=== PATIENT | female | born 1965 | race Caucasian/White ===

== ENCOUNTER 2020-10-05 11:01 | Emergency (ER) | payer OTHER ==
[~2020-10-05] VITALS: Ht 154.9 cm; Wt 63.5 kg
[~2020-10-05 11:01] MED LIST: ADVAIR 2501 DISK W/1 IH; DOLOGESIC CAPLE1 TAB PO; MEDROL4 MG PO; PANADOL EXTRA500 MG PO; PREDNISONE20 MG; PREDNISONE20 MG PO; PROVAIR; PROVENTIL17 G1 IH; PROVENTIL3 ML/2.5 M IH; PROZAC10 MG PO; SINGULAIR 5MG5 MG PO; SYNTHROID50 MCG PO; SYNTHROID75 MCG; TUSICOF LIQUID120 ML PO; TUSSAFED EX LI118 ML PO; TUSSI PRES-B L120 M1 PO; ULTRAM50 MG PO; ZITHROMAX TRI-500 MG PO; ZITHROMAX500 MG PO
== END 2020-10-05 20:16 | disposition home or self-care (01) ==
LOC: ER 11:01
DX: R14.0 Abdominal distension (gaseous) (principal); R11.11 Vomiting without nausea; Z03.818 Encounter for observation for suspected exposure to other biological agents ruled out

== ENCOUNTER 2020-12-01 10:31 | Emergency (ER) | payer OTHER ==
[~2020-12-01] VITALS: Ht 154.9 cm; Wt 63.5 kg
[2020-12-01] MEDS ORDERED: ZITHROMAX TRI-500 MG PO (13:55)
[2020-12-01] MEDS ORDERED: TUSSI PRES-B L480 ML PO (13:55)
== END 2020-12-01 13:59 | disposition home or self-care (01) ==
LOC: ER 10:31
DX: B34.9 Viral infection, unspecified (principal); Z03.818 Encounter for observation for suspected exposure to other biological agents ruled out

== ENCOUNTER 2021-01-02 14:33 | Emergency (ER) | payer OTHER ==
[~2021-01-02] VITALS: Ht 154.9 cm; Wt 63.5 kg
[~2021-01-02 14:33] MED LIST changes: +TUSSI PRES-B L480 ML PO
== END 2021-01-02 22:03 | disposition home or self-care (01) ==
LOC: ER 14:33
DX: R10.9 Unspecified abdominal pain (principal); K76.89 Other specified diseases of liver
CPT/HCPCS: 74177; Q9965

== ENCOUNTER 2021-01-26 09:25 | Emergency (ER) | payer OTHER ==
[~2021-01-26] VITALS: Ht 154.9 cm; Wt 63.5 kg
[2021-01-26] MEDS ORDERED: SIMVASTATIN20 MG PO (10:02)
== END 2021-01-26 13:29 | disposition home or self-care (01) ==
LOC: ER 09:25
DX: R11.11 Vomiting without nausea (principal); E86.0 Dehydration; K58.9 Irritable bowel syndrome, unspecified; Z20.822 Contact with and (suspected) exposure to COVID-19

== ENCOUNTER 2021-02-25 03:43 | Emergency (ER) | payer OTHER ==
[~2021-02-25] VITALS: Ht 154.9 cm; Wt 63.5 kg
[~2021-02-25 03:43] MED LIST changes: +SIMVASTATIN20 MG PO
== END 2021-02-25 05:21 | disposition home or self-care (01) ==
LOC: ER 03:43
DX: K29.70 Gastritis, unspecified, without bleeding (principal)

== ENCOUNTER 2021-05-29 15:30 | Emergency (ER) | payer OTHER ==
[~2021-05-29] VITALS: Ht 160 cm; Wt 54.4 kg
[2021-05-29] MEDS ORDERED: ZITHROMAX500 MG PO (18:14)
== END 2021-05-29 19:19 | disposition home or self-care (01) ==
LOC: ER 15:30
DX: B34.9 Viral infection, unspecified (principal); Z20.822 Contact with and (suspected) exposure to COVID-19

== ENCOUNTER 2021-06-04 12:03 | Emergency (ER) | payer OTHER ==
[~2021-06-04] VITALS: Ht 154.9 cm; Wt 63.5 kg
== END 2021-06-04 17:51 | disposition home or self-care (01) ==
LOC: ER 12:03
DX: B34.9 Viral infection, unspecified (principal); E03.9 Hypothyroidism, unspecified; E78.5 Hyperlipidemia, unspecified; Z88.8 Allergy status to other drugs, medicaments and biological substances

== ENCOUNTER 2021-09-05 11:12 | Emergency (ER) | payer OTHER ==
[~2021-09-05] VITALS: Ht 154.9 cm; Wt 63.5 kg
== END 2021-09-05 14:15 | disposition home or self-care (01) ==
LOC: ER 11:12
DX: K29.70 Gastritis, unspecified, without bleeding (principal); A49.3 Mycoplasma infection, unspecified site

== ENCOUNTER 2021-10-08 03:33 | Emergency (ER) | payer OTHER ==
[~2021-10-08] VITALS: Ht 154.9 cm; Wt 63.5 kg
== END 2021-10-08 13:38 | disposition home or self-care (01) ==
LOC: ER 03:33
DX: R05.9 Cough, unspecified (principal); Z20.828 Contact with and (suspected) exposure to other viral communicable diseases; R50.9 Fever, unspecified; E86.0 Dehydration

== ENCOUNTER 2021-11-25 14:16 | Emergency (ER) | payer OTHER ==
[~2021-11-25] VITALS: Ht 154.9 cm; Wt 63.5 kg
== END 2021-11-25 16:32 | disposition left against medical advice (07) ==
LOC: ER 14:16
DX: Z53.21 Procedure and treatment not carried out due to patient leaving prior to being seen by health care provider (principal)

== ENCOUNTER 2021-11-26 10:12 | Emergency (ER) | payer OTHER ==
[~2021-11-26] VITALS: Ht 154.9 cm; Wt 63.5 kg
== END 2021-11-26 23:54 | disposition home or self-care (01) ==
LOC: ER 10:12
DX: K29.70 Gastritis, unspecified, without bleeding (principal); K21.9 Gastro-esophageal reflux disease without esophagitis; J45.909 Unspecified asthma, uncomplicated; E03.9 Hypothyroidism, unspecified; Z88.6 Allergy status to analgesic agent

== ENCOUNTER 2021-12-22 09:42 | Emergency (ER) | payer OTHER ==
[~2021-12-22] VITALS: Ht 154.9 cm; Wt 63.5 kg
== END 2021-12-22 15:48 | disposition home or self-care (01) ==
LOC: ER 09:42
DX: K29.00 Acute gastritis without bleeding (principal)

== ENCOUNTER 2022-02-27 10:17 | Emergency (ER) | payer OTHER ==
[~2022-02-27] VITALS: Ht 154.9 cm; Wt 68.0 kg
== END 2022-02-27 14:06 | disposition home or self-care (01) ==
LOC: ER 10:17
DX: K29.00 Acute gastritis without bleeding (principal); Z88.6 Allergy status to analgesic agent; K21.9 Gastro-esophageal reflux disease without esophagitis; R10.9 Unspecified abdominal pain

== ENCOUNTER 2022-03-29 09:51 | Emergency (ER) | payer OTHER ==
[~2022-03-29] VITALS: Ht 154.9 cm; Wt 67.6 kg
[2022-03-29] MEDS ORDERED: IPRAT-ALBUT 0.5-3 ML IH (13:37)
[2022-03-29] MEDS ORDERED: MEDROLPACK PO (13:37)
[2022-03-29] MEDS ORDERED: BUDESONIDE0.5 MG/2 M IH (13:37)
[2022-03-29] MEDS ORDERED: MUCINEX DM ER1 EAC1 PO (13:37)
[2022-03-29] MEDS ORDERED: BENZONATATE200 M1 PO (13:37)
[2022-03-29] MEDS ORDERED: ZITHROMAX500 MG PO (13:40)
== END 2022-03-29 13:52 ==
LOC: ER 09:51
DX: J06.9 Acute upper respiratory infection, unspecified (principal); E03.9 Hypothyroidism, unspecified; Z88.6 Allergy status to analgesic agent; Z20.822 Contact with and (suspected) exposure to COVID-19

== ENCOUNTER → 2022-04-03 | Emergency (ER) | payer OTHER ==
[~2022-04-03] VITALS: Ht 154.9 cm; Wt 66.2 kg
[~2022-04-03] MED LIST changes: +BENZONATATE200 M1 PO; +BUDESONIDE0.5 MG/2 M IH; +IPRAT-ALBUT 0.5-3 ML IH; +MEDROLPACK PO; +MUCINEX DM ER1 EAC1 PO
== END | disposition left against medical advice (07) ==
LOC: ER 14:14
DX: Z53.21 Procedure and treatment not carried out due to patient leaving prior to being seen by health care provider (principal)

== ENCOUNTER 2022-04-04 09:12 | Emergency (ER) | payer OTHER ==
[~2022-04-04] VITALS: Ht 154.9 cm; Wt 66.2 kg
== END 2022-04-04 16:51 | disposition home or self-care (01) ==
LOC: ER 09:12
DX: K52.9 Noninfective gastroenteritis and colitis, unspecified (principal); Z88.6 Allergy status to analgesic agent

== ENCOUNTER 2022-04-16 09:35 | Emergency (ER) | payer OTHER ==
[~2022-04-16] VITALS: Ht 154.9 cm; Wt 66.2 kg
== END 2022-04-16 16:09 | disposition home or self-care (01) ==
LOC: ER 09:35
DX: R11.2 Nausea with vomiting, unspecified (principal); Z88.6 Allergy status to analgesic agent; Z87.11 Personal history of peptic ulcer disease

== ENCOUNTER 2022-05-13 10:09 | Emergency (ER) | payer OTHER ==
[~2022-05-13] VITALS: Ht 154.9 cm; Wt 63.5 kg
== END 2022-05-13 16:20 | disposition home or self-care (01) ==
LOC: ER 10:09
DX: K21.9 Gastro-esophageal reflux disease without esophagitis (principal); K29.70 Gastritis, unspecified, without bleeding; Z88.6 Allergy status to analgesic agent; E03.9 Hypothyroidism, unspecified

== ENCOUNTER → 2022-06-16 | Emergency (ER) | payer OTHER ==
[~2022-06-16] VITALS: Ht 154.9 cm; Wt 65.8 kg
== END | disposition home or self-care (01) ==
LOC: ER 11:02
DX: K29.00 Acute gastritis without bleeding (principal); R11.10 Vomiting, unspecified; R10.9 Unspecified abdominal pain; R53.81 Other malaise; E05.80 Other thyrotoxicosis without thyrotoxic crisis or storm; Z88.6 Allergy status to analgesic agent

== ENCOUNTER 2022-08-02 11:27 | Emergency (ER) | payer OTHER ==
[~2022-08-02] VITALS: Ht 154.9 cm; Wt 62.1 kg
== END 2022-08-02 20:41 | disposition home or self-care (01) ==
LOC: ER 11:27
DX: K52.9 Noninfective gastroenteritis and colitis, unspecified (principal); K76.0 Fatty (change of) liver, not elsewhere classified; E03.9 Hypothyroidism, unspecified; E78.00 Pure hypercholesterolemia, unspecified; Z88.6 Allergy status to analgesic agent

== ENCOUNTER 2023-01-15 09:45 | Emergency (ER) | payer OTHER ==
[~2023-01-15] VITALS: Ht 154.9 cm; Wt 63.5 kg
== END 2023-01-15 13:30 | disposition home or self-care (01) ==
LOC: ER 09:46
DX: U07.1 COVID-19 (principal); J06.9 Acute upper respiratory infection, unspecified; R05.9 Cough, unspecified; Z88.6 Allergy status to analgesic agent

== ENCOUNTER 2023-01-23 13:53 | Emergency (ER) | payer OTHER ==
[~2023-01-23] VITALS: Ht 154.9 cm; Wt 63.5 kg
[2023-01-23 15:44] LABS: HEMATOCRIT 34.8 % (36.0-45.00); MEAN CELL VOLUME 88.6 fL (80.00-100.00); MEAN CORPUSCULAR HEMOGLOBIN 30.5 pg (27.00-32.0); MEAN CORPUSCULAR HGB CONC 34.4 g/dl (32.0-36.0); PLATELET COUNT 382 K/uL (150-450); RED BLOOD COUNT 3.93 M/uL (4.00-6.00); RED CELL DISTRIBUTION WIDTH 13.3 % (11.5-14.5)
[2023-01-23 16:29] LABS: CALCIUM 8.7 mg/dL (8.5-10.1); CREATININE SERUM 0.86 mg/dL (0.55-1.02); GFR 67.77; POTASSIUM 3.82 mEq/L (3.5-5.1)
[2023-01-23] MEDS ORDERED: MEDROLPACK PO (17:18)
== END 2023-01-23 18:17 | disposition home or self-care (01) ==
LOC: ER 13:53
PROVIDERS: Nurse Practitioner Family
DX: J06.9 Acute upper respiratory infection, unspecified (principal); Z88.6 Allergy status to analgesic agent; Z20.822 Contact with and (suspected) exposure to COVID-19

== ENCOUNTER 2023-01-25 09:25 | Emergency (ER) | payer OTHER ==
[~2023-01-25] VITALS: Ht 154.9 cm; Wt 61.2 kg
[2023-01-25 13:26] LABS: HEMATOCRIT 36.7 % (36.0-45.00); HEMOGLOBIN 12.6 g/dL (12.0-15.00); MEAN CELL VOLUME 88.4 fL (80.00-100.00); MEAN CORPUSCULAR HEMOGLOBIN 30.3 pg (27.00-32.0); MEAN CORPUSCULAR HGB CONC 34.3 g/dl (32.0-36.0); PLATELET COUNT 412 K/uL (150-450); RED BLOOD COUNT 4.15 M/uL (4.00-6.00); RED CELL DISTRIBUTION WIDTH 13.3 % (11.5-14.5)
[2023-01-25 13:38] LABS: CALCIUM 9.5 mg/dL (8.5-10.1); CREATININE SERUM 0.78 mg/dL (0.55-1.02); GFR 75.85; POTASSIUM 4.03 mEq/L (3.5-5.1)
[2023-01-25 14:38] LABS: URINE APPEARANCE Clear; URINE BILIRRUBIN Negative (NEGATIVE); URINE BLOOD Negative; URINE COLOR Yellow; URINE GLUCOSE Negative (NEGATIVE); URINE LEUKOCYTE Negative; URINE NITRATE Negative; URINE PROTEIN Negative (NEGATIVE); URINE UROBILINOGEN 0.2 E.U./dl
[2023-01-25 14:43] LABS: URINE RBC 3.4 uL (0.0-20.8)
[2023-01-25 14:48] LABS: URINE BACTERIA 1.2 uL (0.0-1933); URINE EPITHELIAL CELLS 0.9 uL (0.0-38.8); URINE WBC 0.6 uL (0.0-23.2)
== END 2023-01-25 17:29 | disposition home or self-care (01) ==
LOC: ER 09:26
PROVIDERS: General Practice
DX: K29.00 Acute gastritis without bleeding (principal); R11.10 Vomiting, unspecified; Z88.6 Allergy status to analgesic agent; E03.9 Hypothyroidism, unspecified; J45.909 Unspecified asthma, uncomplicated; Z86.16 Personal history of COVID-19

== ENCOUNTER 2023-03-04 06:17 | Emergency (ER) | payer OTHER ==
[~2023-03-04] VITALS: Ht 154.9 cm; Wt 61.2 kg
[2023-03-04 09:09] LABS: HEMATOCRIT 36.6 % (36.0-45.00); HEMOGLOBIN 12.5 g/dL (12.0-15.00); MEAN CELL VOLUME 90.4 fL (80.00-100.00); MEAN CORPUSCULAR HEMOGLOBIN 30.8 pg (27.00-32.0); MEAN CORPUSCULAR HGB CONC 34.1 g/dl (32.0-36.0); PLATELET COUNT 329 K/uL (150-450); RED BLOOD COUNT 4.05 M/uL (4.00-6.00); RED CELL DISTRIBUTION WIDTH 14.1 % (11.5-14.5)
[2023-03-04 09:24] LABS: CALCIUM 9.1 mg/dL (8.5-10.1); CREATININE SERUM 0.78 mg/dL (0.55-1.02); GFR 75.85; POTASSIUM 3.37 mEq/L (3.5-5.1)
== END 2023-03-04 11:00 | disposition home or self-care (01) ==
LOC: ER 06:18
PROVIDERS: Emergency Medicine
DX: B34.9 Viral infection, unspecified (principal); R53.81 Other malaise; R11.0 Nausea; Z20.822 Contact with and (suspected) exposure to COVID-19; E03.8 Other specified hypothyroidism; Z88.6 Allergy status to analgesic agent

== ENCOUNTER 2023-09-15 11:46 | Emergency (ER) | payer OTHER ==
[~2023-09-15] VITALS: Ht 154.9 cm; Wt 61.2 kg
[2023-09-15 14:17] LABS: HEMATOCRIT 33.3 % (36.0-45.00); MEAN CELL VOLUME 91.5 fL (80.00-100.00); PLATELET COUNT 251 K/uL (150-450); RED BLOOD COUNT 3.64 M/uL (4.00-6.00); RED CELL DISTRIBUTION WIDTH 13.4 % (11.5-14.5)
[2023-09-15 14:18] LABS: HEMOGLOBIN 11.3 g/dL (12.0-15.00)
[2023-09-15 15:44] LABS: CALCIUM 8.6 mg/dL (8.5-10.1); CREATININE SERUM 0.87 mg/dL (0.55-1.02); GFR 66.64; POTASSIUM 4.02 mEq/L (3.5-5.1)
== END 2023-09-15 16:15 | disposition home or self-care (01) ==
LOC: ER 11:46
PROVIDERS: General Practice
DX: R53.1 Weakness (principal); Z88.6 Allergy status to analgesic agent; Z20.822 Contact with and (suspected) exposure to COVID-19

== ENCOUNTER → 2023-09-15 | Emergency (ER) | payer OTHER ==
[~2023-09-15] MED LIST changes: +TUSNEL LIQUID178 ML PO
== END | disposition left against medical advice (07) ==
LOC: ER 11:00
DX: Z53.21 Procedure and treatment not carried out due to patient leaving prior to being seen by health care provider (principal)

== ENCOUNTER 2023-09-20 19:03 | Emergency (ER) | payer OTHER ==
[~2023-09-20] VITALS: Ht 154.9 cm; Wt 61.2 kg
[2023-09-20] MEDS ORDERED: METHYLPREDNISOLONE SOD SUCC 125 MG VIAL IV STA (19:22)
[2023-09-20] MEDS ORDERED: MAGNESIUM SULFATE IN WATER 4 GM/100 ML PIGGYBACK IV STA (19:23)
[2023-09-20] MEDS ORDERED: IPRATROPIUM/ALBUTEROL SULFATE 3 ML AMPUL.NEB IH STA (19:26)
[2023-09-20] MEDS ORDERED: IPRATROPIUM/ALBUTEROL SULFATE 3 ML AMPUL.NEB IH SCH (19:30)
[2023-09-20] MEDS ORDERED: METHYLPREDNISOLONE SOD SUCC 125 MG VIAL ONE (19:33)
[2023-09-20] MEDS ORDERED: MAGNESIUM SULFATE 50% 5,000 MG/10 ML VIAL ONE (19:34)
[2023-09-20] MEDS ORDERED: IPRATROPIUM/ALBUTEROL SULFATE 3 ML AMPUL.NEB IH ONE ×2 (19:48→19:49)
== END 2023-09-20 20:26 | disposition home or self-care (01) ==
LOC: ER 19:04
DX: R53.81 Other malaise (principal); J45.901 Unspecified asthma with (acute) exacerbation; Z88.6 Allergy status to analgesic agent

== ENCOUNTER 2023-10-19 06:43 | Emergency (ER) | payer OTHER ==
[~2023-10-19] VITALS: Ht 162.6 cm; Wt 63.5 kg
[2023-10-19] MEDS ORDERED: ONDANSETRON HCL 2 MG/ML VIAL IV ONE (08:15)
[2023-10-19] MEDS ORDERED: 0.9 % SODIUM CHLORIDE 500 ML IV ONE (08:15)
[2023-10-19] MEDS ORDERED: ACETAMINOPHEN 500 MG GEL..CAP PO ONE ×2 (08:15→08:35)
[2023-10-19] MEDS ORDERED: ONDANSETRON HCL 2 MG/ML VIAL ONE (08:35)
[2023-10-19 09:01] LABS: HEMATOCRIT 35.9 % (36.0-45.00); HEMOGLOBIN 12.1 g/dL (12.0-15.00); MEAN CELL VOLUME 91.4 fL (80.00-100.00); MEAN CORPUSCULAR HEMOGLOBIN 30.9 pg (27.00-32.0); MEAN CORPUSCULAR HGB CONC 33.9 g/dl (32.0-36.0); PLATELET COUNT 331 K/uL (150-450); RED BLOOD COUNT 3.92 M/uL (4.00-6.00); RED CELL DISTRIBUTION WIDTH 13.4 % (11.5-14.5)
[2023-10-19 09:29] LABS: URINE APPEARANCE Clear; URINE BILIRRUBIN Negative (NEGATIVE); URINE BLOOD Negative; URINE COLOR Yellow; URINE GLUCOSE Negative (NEGATIVE); URINE KETONE Negative (NEGATIVE); URINE LEUKOCYTE Trace; URINE NITRATE Negative; URINE PROTEIN Negative (NEGATIVE); URINE UROBILINOGEN 0.2 E.U./dl
[2023-10-19 09:31] LABS: URINE BACTERIA 27.7 uL (0.0-1933); URINE EPITHELIAL CELLS 7.2 uL (0.0-38.8); URINE RBC 16.3 uL (0.0-20.8); URINE WBC 6.9 uL (0.0-23.2)
[2023-10-19 09:51] LABS: URINE CAST 0.15 uL (0.0-1.40)
[2023-10-19 09:52] LABS: CALCIUM 9.1 mg/dL (8.5-10.1); CREATININE SERUM 0.87 mg/dL (0.55-1.02); GFR 66.64; POTASSIUM 4.13 mEq/L (3.5-5.1)
== END 2023-10-19 10:53 | disposition home or self-care (01) ==
LOC: ER 06:44
PROVIDERS: General Practice
DX: B34.9 Viral infection, unspecified (principal); I95.89 Other hypotension; E03.8 Other specified hypothyroidism; Z88.6 Allergy status to analgesic agent
CPT/HCPCS: 36415; 96365; 99282; J2405; J7042

== ENCOUNTER 2023-12-01 11:11 | Emergency (ER) | payer OTHER ==
[~2023-12-01] VITALS: Ht 154.9 cm; Wt 61.2 kg
[~2023-12-01 11:11] MED LIST changes: -SYNTHROID75 MCG; +SYNTHROID75 MCG PO
[2023-12-01] MEDS ORDERED: ACETAMINOPHEN 500 MG GEL..CAP PO STA (12:28)
[2023-12-01 13:22] LABS: HEMOGLOBIN 11.8 g/dL (12.0-15.00); MEAN CORPUSCULAR HGB CONC 33.7 g/dl (32.0-36.0); PLATELET COUNT 283 K/uL (150-450); RED BLOOD COUNT 3.81 M/uL (4.00-6.00); RED CELL DISTRIBUTION WIDTH 13.6 % (11.5-14.5)
== END 2023-12-01 17:53 | disposition home or self-care (01) ==
LOC: ER 11:13
PROVIDERS: General Practice
DX: B34.9 Viral infection, unspecified (principal); R53.81 Other malaise; Z20.822 Contact with and (suspected) exposure to COVID-19; Z88.6 Allergy status to analgesic agent

== ENCOUNTER 2024-01-16 06:34 | Emergency (ER) | payer OTHER ==
[~2024-01-16] VITALS: Ht 154.9 cm; Wt 63.5 kg
[2024-01-16] MEDS ORDERED: CETIRIZINE HCL 5 MG/5 ML ML PO ONE (09:30)
[2024-01-16] MEDS ORDERED: IPRATROPIUM/ALBUTEROL SULFATE 3 ML AMPUL.NEB IH SCH (09:30)
[2024-01-16] MEDS ORDERED: METHYLPREDNISOLONE SOD SUCC 125 MG VIAL IV ONE (09:30)
[2024-01-16] MEDS ORDERED: MUCINEX DM ER1 EAC1 PO (10:47)
[2024-01-16] MEDS ORDERED: BENZONATATE100 MG PO (10:47)
[2024-01-16] MEDS ORDERED: MONTELUKAST SOD10 MG PO (10:47)
== END 2024-01-16 12:31 | disposition home or self-care (01) ==
LOC: ER 06:36
DX: R05.8 Other specified cough (principal); R05.9 Cough, unspecified; J06.9 Acute upper respiratory infection, unspecified; Z20.822 Contact with and (suspected) exposure to COVID-19; E03.8 Other specified hypothyroidism; Z88.0 Allergy status to penicillin

== ENCOUNTER 2024-01-18 12:07 | Emergency (ER) | payer OTHER ==
[~2024-01-18] VITALS: Ht 162.6 cm; Wt 77.1 kg
[~2024-01-18 12:07] MED LIST changes: +BENZONATATE100 MG PO; +MONTELUKAST SOD10 MG PO
[2024-01-18] MEDS ORDERED: CEFTRIAXONE SODIUM 1,000 MG VIAL IM ONE (13:00)
[2024-01-18] MEDS ORDERED: IPRATROPIUM BROMIDE 0.5 MG/2.5 ML AMPUL.NEB IH ONE (13:00)
[2024-01-18] MEDS ORDERED: LORATADINE 10 MG TABLET PO ONE (13:00)
[2024-01-18] MEDS ORDERED: METHYLPREDNISOLONE SOD SUCC 40 MG VIAL IM ONE (13:00)
[2024-01-18] MEDS ORDERED: LEVALBUTEROL HCL 1.25 MG/3 ML SOLUTION IH ONE (13:00)
[2024-01-18] MEDS ORDERED: BENZONATATE 200 MG CAPSULE PO ONE (13:00)
[2024-01-18 13:33] LABS: HEMATOCRIT 35.1 % (36.0-45.00); HEMOGLOBIN 11.6 g/dL (12.0-15.00); MEAN CORPUSCULAR HEMOGLOBIN 30.8 pg (27.00-32.0); MEAN CORPUSCULAR HGB CONC 33.2 g/dl (32.0-36.0); PLATELET COUNT 300 K/uL (150-450); RED BLOOD COUNT 3.78 M/uL (4.00-6.00); RED CELL DISTRIBUTION WIDTH 13.8 % (11.5-14.5)
[2024-01-18] MEDS ORDERED: MEDROLPACK PO (15:25)
[2024-01-18] MEDS ORDERED: BENZONATATE200 M1 PO (15:25)
[2024-01-18] MEDS ORDERED: ZITHROMAX500 MG PO (15:25)
[2024-01-18] MEDS ORDERED: SINGULAIR10 MG PO (15:25)
[2024-01-18] MEDS ORDERED: LEVALBUTER0.63 MG/3 IH (15:25)
[2024-01-18] MEDS ORDERED: PEPCID AC20 MG PO (15:25)
[2024-01-18] MEDS ORDERED: PROAIR RESPICL90 MCG IH (15:25)
== END 2024-01-18 15:34 | disposition home or self-care (01) ==
LOC: ER 12:09
PROVIDERS: General Practice
DX: J45.909 Unspecified asthma, uncomplicated (principal); R05.9 Cough, unspecified; Z20.822 Contact with and (suspected) exposure to COVID-19; E03.8 Other specified hypothyroidism; Z88.0 Allergy status to penicillin

== ENCOUNTER 2024-03-22 10:38 | Emergency (ER) | payer OTHER ==
[~2024-03-22] VITALS: Ht 154.9 cm; Wt 63.5 kg
[~2024-03-22 10:38] MED LIST changes: +LEVALBUTER0.63 MG/3 IH; +PEPCID AC20 MG PO; +PROAIR RESPICL90 MCG IH; +SINGULAIR10 MG PO
[2024-03-22] MEDS ORDERED: SIMVASTATIN10 MG PO (11:17)
[2024-03-22] MEDS ORDERED: PEPCID AC20 MG PO (11:17)
[2024-03-22 13:53] LABS: HEMATOCRIT 35.7 % (36.0-45.00); HEMOGLOBIN 12.1 g/dL (12.0-15.00); MEAN CELL VOLUME 91.2 fL (80.00-100.00); MEAN CORPUSCULAR HEMOGLOBIN 30.9 pg (27.00-32.0); MEAN CORPUSCULAR HGB CONC 33.9 g/dl (32.0-36.0); PLATELET COUNT 298 K/uL (150-450); RED BLOOD COUNT 3.91 M/uL (4.00-6.00); RED CELL DISTRIBUTION WIDTH 13.8 % (11.5-14.5)
== END 2024-03-22 16:19 | disposition home or self-care (01) ==
LOC: ER 10:41
PROVIDERS: General Practice
DX: B34.9 Viral infection, unspecified (principal); R53.81 Other malaise; Z20.822 Contact with and (suspected) exposure to COVID-19; E03.8 Other specified hypothyroidism; Z88.6 Allergy status to analgesic agent

== ENCOUNTER 2024-05-08 11:30 | Emergency (ER) | payer OTHER ==
[~2024-05-08] VITALS: Ht 154.9 cm; Wt 61.2 kg
[~2024-05-08 11:30] MED LIST changes: +SIMVASTATIN10 MG PO
[2024-05-08] MEDS ORDERED: FAMOTIDINE/PF 20 MG in 0.9 % SODIUM CHLORIDE 8 ML IV PUSH STA (12:31)
[2024-05-08] MEDS ORDERED: HYOSCYAMINE SULFATE 0.125 MG TAB.SUBL SL ONE (12:45)
[2024-05-08] MEDS ORDERED: 0.9 % SODIUM CHLORIDE 1,000 ML IV SCH (12:45)
[2024-05-08] MEDS ORDERED: ONDANSETRON HCL 2 MG/ML VIAL IV ONE (12:45)
[2024-05-08] MEDS ORDERED: ONDANSETRON HCL 2 MG/ML VIAL ONE (12:53)
[2024-05-08] MEDS ORDERED: HYOSCYAMINE SULFATE 0.125 MG TAB.SUBL ONE (12:53)
[2024-05-08] MEDS ORDERED: FAMOTIDINE/PF 20 MG/2 ML VIAL ONE (12:54)
[2024-05-08 13:13] LABS: HEMATOCRIT 37.7 % (36.0-45.00); HEMOGLOBIN 12.6 g/dL (12.0-15.00); MEAN CELL VOLUME 91.1 fL (80.00-100.00); MEAN CORPUSCULAR HEMOGLOBIN 30.5 pg (27.00-32.0); MEAN CORPUSCULAR HGB CONC 33.5 g/dl (32.0-36.0); PLATELET COUNT 311 K/uL (150-450); RED BLOOD COUNT 4.15 M/uL (4.00-6.00); RED CELL DISTRIBUTION WIDTH 13.6 % (11.5-14.5)
[2024-05-08 15:19] LABS: ALBUMIN 3.7 gm/dL (3.4-5.0); BILIRUBIN TOTAL 0.39 mg/dL (0.3-1.2); CALCIUM 8.9 mg/dL (8.5-10.1); CREATININE SERUM 0.82 mg/dL (0.55-1.02); GFR 71.35; GLOBULINA 3.6 G/DL (2.4-3.5); POTASSIUM 4.3 mEq/L (3.5-5.1); TOTAL PROTEIN 7.3 gm/dL (6.4-8.2)
[2024-05-08 15:35] VITALS: BP 120/69; O2SAT 100
[2024-05-08] MEDS ORDERED: PEPCID AC20 MG PO (15:43)
[2024-05-08] MEDS ORDERED: ZOFRAN8 MG PO (15:43)
[2024-05-08] MEDS ORDERED: LEVSIN/SL0.125 MG SL (15:43)
== END 2024-05-08 15:51 | disposition home or self-care (01) ==
LOC: ER 11:31
PROVIDERS: General Practice
DX: K52.89 Other specified noninfective gastroenteritis and colitis (principal); I10 Essential (primary) hypertension; Z88.6 Allergy status to analgesic agent

== ENCOUNTER → 2024-07-13 | Emergency (ER) | payer OTHER ==
[~2024-07-13] VITALS: Ht 154.9 cm; Wt 68.0 kg
[~2024-07-13] MED LIST changes: +LEVSIN/SL0.125 MG SL; +ZOFRAN8 MG PO
== END | disposition left against medical advice (07) ==
LOC: ER 16:58
DX: Z53.21 Procedure and treatment not carried out due to patient leaving prior to being seen by health care provider (principal)

== ENCOUNTER 2024-07-14 06:46 | Emergency (ER) | payer OTHER ==
[~2024-07-14] VITALS: Ht 154.9 cm; Wt 63.5 kg
[2024-07-14 08:46] LABS: BASO % 0.6 % (0.1-1.2); EOS % 1.6 % (0.7-7.0); HEMATOCRIT 36.2 % (34.1-44.9); HEMOGLOBIN 12.2 g/dL (11.2-15.7); LYMPH # 1.87 (1.18-3.74); LYMPH % 29.8 % (19.3-53.1); MEAN CORPUSCULAR HEMOGLOBIN 30.4 pg (25.6-32.2); MONO # 0.69 (0.24-0.82); NEUT # 3.56 (1.56-6.13); NEUT % 56.8 % (34.0-71.1); PLATELET COUNT 293 K/uL (163-369); RED BLOOD COUNT 4.01 M/uL (3.93-5.22); RED CELL DISTRIBUTION WIDTH 12.6 % (11.6-14.4)
[2024-07-14 09:31] LABS: COVID-19 AG NEGATIVE (NEGATIVE); INFLUENZA A AG NEGATIVE (NEGATIVE); INFLUENZA B AG NEGATIVE (NEGATIVE)
== END 2024-07-14 10:46 | disposition home or self-care (01) ==
LOC: ER 07:40
DX: B34.9 Viral infection, unspecified (principal); Z88.6 Allergy status to analgesic agent; E03.8 Other specified hypothyroidism; Z20.822 Contact with and (suspected) exposure to COVID-19

== ENCOUNTER → 2024-08-09 | Emergency (ER) | payer OTHER | END | disposition left against medical advice (07) | LOC: ER 10:16 | DX: Z53.21 Procedure and treatment not carried out due to patient leaving prior to being seen by health care provider (principal) ==

== ENCOUNTER 2024-08-12 06:30 | Emergency (ER) | payer OTHER ==
[~2024-08-12] VITALS: Ht 154.9 cm; Wt 65.8 kg
[2024-08-12] MEDS ORDERED: HYDROCODONE/CHLORPHEN P-STIREX 5 ML ML PO STA (08:05)
[2024-08-12] MEDS ORDERED: IPRATROPIUM/ALBUTEROL SULFATE 3 ML AMPUL.NEB IH STA (08:06)
[2024-08-12] MEDS ORDERED: METHYLPREDNISOLONE SOD SUCC 125 MG VIAL IV STA (08:06)
[2024-08-12 09:17] LABS: BASO % 0.4 % (0.1-1.2); EOS # 0.05 (0.04-0.54); EOS % 0.4 % (0.7-7.0); LYMPH # 1.27 (1.18-3.74); LYMPH % 9.4 % (19.3-53.1); MEAN PLATELET VOLUME 9.90 fl (9.4-12.4); MONO # 1.17 (0.24-0.82); MONO % 8.7 % (4.7-12.5); NEUT # 10.85 (1.56-6.13); NEUT % 80.7 % (34.0-71.1); RED CELL DISTRIBUTION WIDTH 12.7 % (11.6-14.4)
[2024-08-12 09:28] LABS: COVID-19 AG NEGATIVE (NEGATIVE)
[2024-08-12] MEDS ORDERED: CEFTRIAXONE SODIUM 1,000 MG VIAL IM STA (09:36)
== END 2024-08-12 11:31 | disposition home or self-care (01) ==
LOC: ER 06:33
DX: J45.909 Unspecified asthma, uncomplicated (principal); Z20.822 Contact with and (suspected) exposure to COVID-19; Z88.6 Allergy status to analgesic agent

== ENCOUNTER 2024-08-16 11:30 | Emergency (ER) | payer OTHER ==
[~2024-08-16] VITALS: Ht 154.9 cm; Wt 65.8 kg
[2024-08-16] MEDS ORDERED: BUDESONIDE 0.5 MG/2 ML AMPUL.NEB IH ONE (13:15)
[2024-08-16] MEDS ORDERED: METHYLPREDNISOLONE SOD SUCC 125 MG VIAL IV ONE (13:15)
[2024-08-16] MEDS ORDERED: IPRATROPIUM/ALBUTEROL SULFATE 3 ML AMPUL.NEB IH SCH (13:15)
[2024-08-16] MEDS ORDERED: MAGNESIUM SULFATE IN WATER 50 ML IV NR (13:15)
[2024-08-16 13:59] LABS: BASO % 0.5 % (0.1-1.2); EOS # 0.16 (0.04-0.54); EOS % 1.6 % (0.7-7.0); LYMPH # 2.22 (1.18-3.74); LYMPH % 21.6 % (19.3-53.1); MEAN PLATELET VOLUME 9.80 fl (9.4-12.4); MONO # 1.12 (0.24-0.82); MONO % 10.9 % (4.7-12.5); NEUT # 6.70 (1.56-6.13); NEUT % 65.2 % (34.0-71.1); RED CELL DISTRIBUTION WIDTH 12.6 % (11.6-14.4)
[2024-08-16 14:22] LABS: ALT/SGPT 32.0 U/L (12-78); AST/SGOT 19.0 U/L (15-37); BILIRUBIN TOTAL 0.36 mg/dL (0.3-1.2); BUN CREA RATIO 13.0 (7.0-25.0); CREATININE SERUM 0.82 mg/dL (0.55-1.02); GFR 71.35; GLOBULINA 3.9 G/DL (2.4-3.5); GLUCOSE FASTING 86.0 mg/dL (65-100); OSMOLALITY SERUM 284.0 MOSM/KG (275-295)
[2024-08-16 14:59] LABS: COVID-19 AG NEGATIVE (NEGATIVE)
[2024-08-16] MEDS ORDERED: ALBUTEROL2.5 MG/3 M IH (16:14)
[2024-08-16] MEDS ORDERED: BUDESONIDE0.5 MG/2 M IH (16:14)
[2024-08-16] MEDS ORDERED: GILTUSS COUGH-118 M1 PO (16:14)
[2024-08-16] MEDS ORDERED: ACETAMINOPHEN500 M1 PO (16:14)
[2024-08-16] MEDS ORDERED: ZITHROMAX TRI-500 MG PO (16:14)
== END 2024-08-16 17:13 | disposition home or self-care (01) ==
LOC: ER 11:30
PROVIDERS: Preventive Medicine Public Health & General Preventive Medicine
DX: J45.901 Unspecified asthma with (acute) exacerbation (principal); J06.9 Acute upper respiratory infection, unspecified; E03.8 Other specified hypothyroidism; R06.02 Shortness of breath; R05.9 Cough, unspecified; Z20.822 Contact with and (suspected) exposure to COVID-19; Z88.6 Allergy status to analgesic agent

== ENCOUNTER → 2024-08-23 | Emergency (ER) | payer OTHER ==
[~2024-08-23] MED LIST changes: +ACETAMINOPHEN500 M1 PO; +ALBUTEROL SULFATE 3 ML/2.5 MG AMPUL.NEB IH ONE; +ALBUTEROL2.5 MG/3 M IH; +GILTUSS COUGH-118 M1 PO; +LEVALBUTEROL HCL 0.63 MG/3 ML SOLUTION IH ONE
== END | disposition left against medical advice (07) ==
LOC: ER 15:49
DX: Z53.21 Procedure and treatment not carried out due to patient leaving prior to being seen by health care provider (principal)

== ENCOUNTER → 2024-08-24 | Emergency (ER) | payer OTHER ==
[~2024-08-24] VITALS: Ht 154.9 cm; Wt 65.8 kg
[~2024-08-24] MED LIST changes: -ALBUTEROL SULFATE 3 ML/2.5 MG AMPUL.NEB IH ONE; +ALBUTEROL SULFATE 3 ML/2.5 MG AMPUL.NEB IH SCH; +GUAIFENESIN 200 MG/10 ML BLIST.PACK PO ONE; +GUAIFENESIN 200 MG/10 ML BLIST.PACK PO STA; +MAGNESIUM SULFATE 50% 1,000 MG/2 ML VIAL ONE; +MAGNESIUM SULFATE IN WATER 50 ML IV ONE; +METHYLPREDNISOLONE SOD SUCC 125 MG VIAL IV STA; +METHYLPREDNISOLONE SOD SUCC 125 MG VIAL ONE
[2024-08-24 09:08] LABS: BASO % 0.2 % (0.1-1.2); EOS # 0.18 (0.04-0.54); EOS % 1.5 % (0.7-7.0); LYMPH # 2.38 (1.18-3.74); LYMPH % 19.8 % (19.3-53.1); MEAN PLATELET VOLUME 9.50 fl (9.4-12.4); MONO # 0.88 (0.24-0.82); MONO % 7.3 % (4.7-12.5); NEUT # 8.52 (1.56-6.13); NEUT % 70.8 % (34.0-71.1); RED CELL DISTRIBUTION WIDTH 12.8 % (11.6-14.4)
[2024-08-24 09:27] LABS: COVID-19 AG NEGATIVE (NEGATIVE)
== END | disposition home or self-care (01) ==
LOC: ER 06:50
PROVIDERS: General Practice
DX: J45.901 Unspecified asthma with (acute) exacerbation (principal); J45.909 Unspecified asthma, uncomplicated; Z20.822 Contact with and (suspected) exposure to COVID-19; E03.8 Other specified hypothyroidism; Z88.6 Allergy status to analgesic agent

== ENCOUNTER 2024-10-09 06:32 | Emergency (ER) | payer OTHER ==
[~2024-10-09] VITALS: Ht 154.9 cm; Wt 65.8 kg
[~2024-10-09 06:32] MED LIST changes: -ALBUTEROL SULFATE 3 ML/2.5 MG AMPUL.NEB IH SCH; -GUAIFENESIN 200 MG/10 ML BLIST.PACK PO ONE; -GUAIFENESIN 200 MG/10 ML BLIST.PACK PO STA; -LEVALBUTEROL HCL 0.63 MG/3 ML SOLUTION IH ONE; -MAGNESIUM SULFATE 50% 1,000 MG/2 ML VIAL ONE; -MAGNESIUM SULFATE IN WATER 50 ML IV ONE; -METHYLPREDNISOLONE SOD SUCC 125 MG VIAL IV STA; -METHYLPREDNISOLONE SOD SUCC 125 MG VIAL ONE
[2024-10-09] MEDS ORDERED: SYNTHROID88 MCG PO (06:49)
[2024-10-09] MEDS ORDERED: ACETAMINOPHEN 500 MG GEL..CAP PO STA (07:26)
[2024-10-09] MEDS ORDERED: ACETAMINOPHEN 500 MG GEL..CAP PO ONE (07:30)
[2024-10-09 07:53] LABS: BASO % 0.5 % (0.1-1.2); EOS # 0.25 (0.04-0.54); EOS % 3.1 % (0.7-7.0); LYMPH # 1.51 (1.18-3.74); LYMPH % 19.0 % (19.3-53.1); MEAN PLATELET VOLUME 10.00 fl (9.4-12.4); MONO # 0.62 (0.24-0.82); MONO % 7.8 % (4.7-12.5); NEUT # 5.51 (1.56-6.13); NEUT % 69.3 % (34.0-71.1); RED CELL DISTRIBUTION WIDTH 12.7 % (11.6-14.4)
[2024-10-09 08:41] LABS: COVID-19 AG NEGATIVE (NEGATIVE)
[2024-10-09 09:49] VITALS: BP 117/75; O2SAT 100
== END 2024-10-09 09:52 | disposition home or self-care (01) ==
LOC: ER 06:32
PROVIDERS: General Practice
DX: B34.9 Viral infection, unspecified (principal); Z88.6 Allergy status to analgesic agent; E03.8 Other specified hypothyroidism; Z20.822 Contact with and (suspected) exposure to COVID-19

== ENCOUNTER 2024-10-26 09:08 | Emergency (ER) | payer OTHER ==
[~2024-10-26] VITALS: Ht 154.9 cm; Wt 65.8 kg
[~2024-10-26 09:08] MED LIST changes: +SYNTHROID88 MCG PO
[2024-10-26] MEDS ORDERED: HYOSCYAMINE SULFATE 0.125 MG TAB.SUBL ONE (10:08)
[2024-10-26] MEDS ORDERED: MAG HYDROX/ALUMINUM HYD/SIMETH 30 ML BLIST.PACK PO ONE ×2 (10:08→10:15)
[2024-10-26] MEDS ORDERED: PANTOPRAZOLE SODIUM 40 MG/VIAL VIAL IV PUSH ONE (10:15)
[2024-10-26] MEDS ORDERED: HYOSCYAMINE SULFATE 0.125 MG TAB.SUBL SL ONE (10:15)
[2024-10-26 10:41] LABS: BASO % 0.4 % (0.1-1.2); EOS # 0.06 (0.04-0.54); EOS % 0.8 % (0.7-7.0); LYMPH # 1.08 (1.18-3.74); LYMPH % 13.7 % (19.3-53.1); MEAN PLATELET VOLUME 9.40 fl (9.4-12.4); MONO # 0.46 (0.24-0.82); MONO % 5.8 % (4.7-12.5); NEUT # 6.26 (1.56-6.13); NEUT % 79.0 % (34.0-71.1); RED CELL DISTRIBUTION WIDTH 12.5 % (11.6-14.4)
[2024-10-26 11:15] LABS: ALT/SGPT 20.0 U/L (12-78); AST/SGOT 19.0 U/L (15-37); BILIRUBIN TOTAL 0.45 mg/dL (0.3-1.2); BUN CREA RATIO 16.0 (7.0-25.0); CREATININE SERUM 0.81 mg/dL (0.55-1.02); GFR 72.12; GLOBULINA 3.0 G/DL (2.4-3.5); GLUCOSE FASTING 117.0 mg/dL (65-100); OSMOLALITY SERUM 286.0 MOSM/KG (275-295)
== END 2024-10-26 12:41 | disposition home or self-care (01) ==
LOC: ER 09:09
PROVIDERS: Emergency Medicine
DX: K44.9 Diaphragmatic hernia without obstruction or gangrene (principal); K21.9 Gastro-esophageal reflux disease without esophagitis; Z88.6 Allergy status to analgesic agent; E03.8 Other specified hypothyroidism; K29.70 Gastritis, unspecified, without bleeding

== ENCOUNTER → 2024-11-16 | Emergency (ER) | payer OTHER ==
[~2024-11-16] VITALS: Ht 154.9 cm; Wt 65.3 kg
== END | disposition left against medical advice (07) ==
LOC: ER 12:19
DX: Z53.21 Procedure and treatment not carried out due to patient leaving prior to being seen by health care provider (principal)

== ENCOUNTER 2024-12-12 16:11 | Emergency (ER) | payer OTHER ==
[~2024-12-12] VITALS: Ht 154.9 cm; Wt 61.2 kg
[2024-12-12] MEDS ORDERED: METHYLPREDNISOLONE SOD SUCC 125 MG VIAL IV STA (16:50)
[2024-12-12] MEDS ORDERED: GUAIFENESIN 200 MG/10 ML BLIST.PACK PO STA (16:51)
[2024-12-12] MEDS ORDERED: LEVALBUTEROL HCL 0.63 MG/3 ML SOLUTION IH STA (16:51)
[2024-12-12] MEDS ORDERED: METHYLPREDNISOLONE SOD SUCC 125 MG VIAL ONE (17:37)
[2024-12-12] MEDS ORDERED: GUAIFENESIN 200 MG/10 ML BLIST.PACK PO ONE (17:37)
[2024-12-12] MEDS ORDERED: LEVALBUTEROL HCL 1.25 MG/3 ML SOLUTION IH ONE (17:39)
[2024-12-12 17:57] LABS: BASO % 0.3 % (0.1-1.2); EOS # 0.00 (0.04-0.54); EOS % 0.0 % (0.7-7.0); LYMPH # 0.86 (1.18-3.74); LYMPH % 13.5 % (19.3-53.1); MEAN PLATELET VOLUME 9.60 fl (9.4-12.4); MONO # 0.28 (0.24-0.82); MONO % 4.4 % (4.7-12.5); NEUT # 5.19 (1.56-6.13); NEUT % 81.6 % (34.0-71.1); RED CELL DISTRIBUTION WIDTH 12.4 % (11.6-14.4)
[2024-12-12 19:05] LABS: COVID-19 AG NEGATIVE (NEGATIVE)
[2024-12-12] MEDS ORDERED: ZYRTEC10 M3 PO (19:17)
[2024-12-12] MEDS ORDERED: ZITHROMAX500 MG PO (19:17)
[2024-12-12] MEDS ORDERED: MEDROLPACK PO (19:17)
[2024-12-12] MEDS ORDERED: ACETAMINOPHEN500 M2 PO (19:17)
[2024-12-12] MEDS ORDERED: ALBUTEROL2.5 MG/3 M IH (19:17)
== END 2024-12-12 19:55 | disposition home or self-care (01) ==
LOC: ER 16:12
PROVIDERS: General Practice
DX: J06.9 Acute upper respiratory infection, unspecified (principal); Z88.6 Allergy status to analgesic agent; E03.8 Other specified hypothyroidism; B97.4 Respiratory syncytial virus as the cause of diseases classified elsewhere; J45.901 Unspecified asthma with (acute) exacerbation; Z20.822 Contact with and (suspected) exposure to COVID-19

== ENCOUNTER 2024-12-15 08:15 | Emergency (ER) | payer OTHER ==
[~2024-12-15] VITALS: Ht 154.9 cm; Wt 63.5 kg
[~2024-12-15 08:15] MED LIST changes: +ACETAMINOPHEN500 M2 PO; +ZYRTEC10 M3 PO
[2024-12-15] MEDS ORDERED: CEFTRIAXONE SODIUM 1,000 MG VIAL IV ONE (09:15)
[2024-12-15] MEDS ORDERED: MAGNESIUM SULFATE IN WATER 50 ML IV ONE (09:15)
[2024-12-15] MEDS ORDERED: BENZONATATE 200 MG CAPSULE PO ONE (09:15)
[2024-12-15] MEDS ORDERED: LEVALBUTEROL HCL 1.25 MG/3 ML SOLUTION IH SCH (09:15)
[2024-12-15] MEDS ORDERED: METHYLPREDNISOLONE SOD SUCC 125 MG VIAL IV ONE (09:15)
[2024-12-15] MEDS ORDERED: IPRATROPIUM BROMIDE 0.5 MG/2.5 ML AMPUL.NEB IH SCH (09:15)
[2024-12-15] MEDS ORDERED: METHYLPREDNISOLONE SOD SUCC 125 MG VIAL ONE (09:24)
[2024-12-15] MEDS ORDERED: CEFTRIAXONE SODIUM 1,000 MG VIAL ONE (09:24)
[2024-12-15] MEDS ORDERED: IPRATROPIUM BROMIDE 0.5 MG/2.5 ML AMPUL.NEB IH ONE (09:40)
[2024-12-15] MEDS ORDERED: ALBUTEROL SULFATE 3 ML/2.5 MG AMPUL.NEB IH ONE (09:41)
[2024-12-15 09:59] LABS: BASO % 0.8 % (0.1-1.2); EOS # 0.28 (0.04-0.54); EOS % 3.2 % (0.7-7.0); LYMPH # 1.36 (1.18-3.74); LYMPH % 15.8 % (19.3-53.1); MEAN PLATELET VOLUME 9.60 fl (9.4-12.4); MONO # 1.19 (0.24-0.82); NEUT # 5.71 (1.56-6.13); NEUT % 66.2 % (34.0-71.1); RED CELL DISTRIBUTION WIDTH 12.7 % (11.6-14.4)
[2024-12-15 10:01] LABS: MONO % 13.8 % (4.7-12.5)
[2024-12-15 10:21] LABS: ALT/SGPT 23.0 U/L (12-78); AST/SGOT 17.0 U/L (15-37); BILIRUBIN TOTAL 0.37 mg/dL (0.3-1.2); BUN CREA RATIO 16.0 (7.0-25.0); CREATININE SERUM 0.95 mg/dL (0.55-1.02); GFR 60.0; GLOBULINA 3.3 G/DL (2.4-3.5); GLUCOSE FASTING 99.0 mg/dL (65-100); OSMOLALITY SERUM 288.0 MOSM/KG (275-295)
[2024-12-15 10:41] LABS: COVID-19 AG NEGATIVE (NEGATIVE)
== END 2024-12-15 12:58 | disposition home or self-care (01) ==
LOC: ER 08:15
PROVIDERS: General Practice
DX: J45.998 Other asthma (principal); Z20.822 Contact with and (suspected) exposure to COVID-19; Z88.6 Allergy status to analgesic agent; E03.9 Hypothyroidism, unspecified

== ENCOUNTER → 2025-01-04 | Emergency (ER) | payer OTHER ==
[~2025-01-04] VITALS: Ht 154.9 cm; Wt 59.0 kg
[~2025-01-04] MED LIST changes: +0.9 % SODIUM CHLORIDE 1,000 ML IV SCH; +CARAFATE1 GM PO; +FAMOtidine 10 MG/ML (4ML VIAL) IV PUSH ONE; +HYOSCYAMINE SULFATE 0.125 MG TAB.SUBL PO ONE; +MORPHINE SULFATE 2 MG/ML SYRINGE IV ONE; +ONDANSETRON HCL 2 MG/ML VIAL IV ONE
[2025-01-04 10:11] LABS: BASO % 0.5 % (0.1-1.2); EOS # 0.05 (0.04-0.54); EOS % 0.8 % (0.7-7.0); LYMPH # 1.73 (1.18-3.74); LYMPH % 28.2 % (19.3-53.1); MEAN PLATELET VOLUME 9.90 fl (9.4-12.4); MONO # 0.37 (0.24-0.82); MONO % 6.0 % (4.7-12.5); NEUT # 3.95 (1.56-6.13); NEUT % 64.3 % (34.0-71.1); RED CELL DISTRIBUTION WIDTH 12.3 % (11.6-14.4)
[2025-01-04 10:35] LABS: ALT/SGPT 28.0 U/L (12-78); AST/SGOT 22.0 U/L (15-37); BILIRUBIN TOTAL 0.41 mg/dL (0.3-1.2); BUN CREA RATIO 21.0 (7.0-25.0); CREATININE SERUM 0.7 mg/dL (0.55-1.02); GFR 85.35; GLOBULINA 3.7 G/DL (2.4-3.5); GLUCOSE FASTING 106.0 mg/dL (65-100); OSMOLALITY SERUM 286.0 MOSM/KG (275-295)
== END | disposition home or self-care (01) ==
LOC: ER 08:05
PROVIDERS: General Practice
DX: K52.9 Noninfective gastroenteritis and colitis, unspecified (principal); R11.10 Vomiting, unspecified; R11.0 Nausea; R10.9 Unspecified abdominal pain; E03.8 Other specified hypothyroidism; Z88.6 Allergy status to analgesic agent

== ENCOUNTER → 2025-02-02 | Emergency (ER) | payer OTHER ==
[~2025-02-02] VITALS: Ht 154.9 cm; Wt 63.5 kg
[~2025-02-02] MED LIST changes: -0.9 % SODIUM CHLORIDE 1,000 ML IV SCH; +BUDESONIDE 0.5 MG/2 ML AMPUL.NEB IH ONE; -FAMOtidine 10 MG/ML (4ML VIAL) IV PUSH ONE; -HYOSCYAMINE SULFATE 0.125 MG TAB.SUBL PO ONE; +IPRATROPIUM/ALBUTEROL SULFATE 3 ML AMPUL.NEB IH SCH; -MORPHINE SULFATE 2 MG/ML SYRINGE IV ONE; -ONDANSETRON HCL 2 MG/ML VIAL IV ONE
[2025-02-02 11:27] LABS: BASO % 0.5 % (0.1-1.2); EOS # 0.18 (0.04-0.54); EOS % 1.9 % (0.7-7.0); LYMPH # 1.02 (1.18-3.74); LYMPH % 11.0 % (19.3-53.1); MEAN PLATELET VOLUME 10.10 fl (9.4-12.4); MONO # 0.73 (0.24-0.82); MONO % 7.9 % (4.7-12.5); NEUT # 7.26 (1.56-6.13); NEUT % 78.5 % (34.0-71.1); RED CELL DISTRIBUTION WIDTH 13.1 % (11.6-14.4)
[2025-02-02 11:38] LABS: COVID-19 AG NEGATIVE (NEGATIVE)
[2025-02-02 11:41] LABS: ALT/SGPT 33.0 U/L (12-78); AST/SGOT 28.0 U/L (15-37); BILIRUBIN TOTAL 0.6 mg/dL (0.3-1.2); BUN CREA RATIO 23.0 (7.0-25.0); CREATININE SERUM 0.71 mg/dL (0.55-1.02); GFR 83.97; GLOBULINA 3.3 G/DL (2.4-3.5); GLUCOSE FASTING 109.0 mg/dL (65-100); OSMOLALITY SERUM 289.0 MOSM/KG (275-295)
== END | disposition home or self-care (01) ==
LOC: ER 08:21
PROVIDERS: Preventive Medicine Public Health & General Preventive Medicine
DX: J06.9 Acute upper respiratory infection, unspecified (principal); R05.8 Other specified cough; R51.9 Headache, unspecified; Z20.822 Contact with and (suspected) exposure to COVID-19; Z88.6 Allergy status to analgesic agent